=== PATIENT | male | born 1990 | race African-American/Black ===

== ENCOUNTER 2017-10-19 09:11 | Emergency (ER) | payer OTHER, BC ==
[2017-10-19] MEDS: KETOROLAC 60 MG INJ IM (09:36)
== END 2017-10-19 10:30 | disposition home or self-care (01) ==
LOC: FTE 09:11
DX: S89.92XA Unspecified injury of left lower leg, initial encounter (principal); X58.XXXA Exposure to other specified factors, initial encounter; Y92.9 Unspecified place or not applicable
CPT/HCPCS: 73562; 96372; 99284-25

== ENCOUNTER 2018-05-15 09:52 | Emergency (ER) | payer OTHER ==
[2018-05-15] MEDS: IBUPROFEN 800 MG TAB PO (10:23)
== END 2018-05-15 10:59 | disposition home or self-care (01) ==
LOC: E/R 09:52
DX: R07.9 Chest pain, unspecified (principal)
CPT/HCPCS: 71045; 93005; 99284-25